=== PATIENT | female | born 1985 | race Two or more races ===

== ENCOUNTER 2024-07-07 18:17 | Emergency (ER) | payer OTHER ==
[~2024-07-07] VITALS: Ht 162.6 cm; Wt 88.0 kg
[2024-07-07 19:01] VITALS: BP 108/70; TEMP 98.7; O2SAT 97
== END 2024-07-07 19:02 | disposition home or self-care (01) ==
LOC: ER 18:21
DX: F10.10 Alcohol abuse, uncomplicated (principal); Y90.9 Presence of alcohol in blood, level not specified
CPT/HCPCS: 98960